=== PATIENT | female | born 1965 | race Two or more races ===

== ENCOUNTER 2025-02-10 15:34 | Outpatient (CLI) | payer BC ==
[2025-02-10 16:28] LABS: Hematocrit 40.8 % (36.0-46.0); Hemoglobin 13.9 g/dL (12.2-16.2); Mean Corpuscular Hemoglobin 29.4 pg (28.0-32.0); Mean Corpuscular Volume 86.1 fL (80.0-100.0); Nucleated Red Blood Cells % 0.1 %
[2025-02-10 16:50] LABS: Albumin 4.6 g/dL (3.2-4.8); Alkaline Phosphatase 69 U/L (46-116); Anion Gap 11 (5-15); BUN/Creatinine Ratio 13.9 (10.0-20.0); Blood Urea Nitrogen 11 mg/dL (9-23); Calcium 9.6 mg/dL (8.7-10.4); Carbon Dioxide 27 mmol/L (20-31); Chloride 101 mmol/L (98-107); Glucose 89 mg/dL (74-106); Potassium 4.0 mmol/L (3.5-5.1); Sodium 139 mmol/L (136-145); Total Protein 7.6 g/dL (5.7-8.2); Triglycerides 93 mg/dL (< 150)
[2025-02-10 16:56] LABS: Bilirubin, Total 1.0 mg/dL (0.2-1.0)
[2025-02-10 16:57] LABS: Alanine Aminotransferase 44 U/L (7-40); Cholesterol 331 mg/dL (< 200); HDL Cholesterol 60 mg/dL (40-59)
[2025-02-10 17:24] LABS: Follicle Stimulating Hormone 66.89 IU/L (SEE BELOW)
[2025-02-11 08:07] LABS: Free Thyroxine Index 1.5 (1.2-4.9)
== END 2025-02-10 17:00 | disposition home or self-care (01) ==
LOC: LAB 15:34
PROVIDERS: ATTEND Internal Medicine
DX: E53.9 Vitamin B deficiency, unspecified (principal); E34.9 Endocrine disorder, unspecified; E07.89 Other specified disorders of thyroid; N95.1 Menopausal and female climacteric states; Z13.220 Encounter for screening for lipoid disorders
CPT/HCPCS: 36415; 80053; 80061; 82306; 82607; 82670; 82746; 83001; 83002; 83036; 84144; 84443; 85025; 86376